=== PATIENT | female | born 1990 | race Caucasian/White ===

== ENCOUNTER 2019-03-30 07:05 | Outpatient (CLI) | payer BC ==
--- NOTE | 2019-03-30 08:55 | MRI ---
MRI OF BRAIN WITH AND WITHOUT CONTRAST: Date: 03/30/19 INDICATION: Chronic nonintractable headache, unspecified. No prior imaging comparison available. FINDINGS: The ventricular system is normal in size. There is no mass effect or midline shift. No acute territor ial infarction or intracranial hemorrhagic susceptibility. There is focal prominence of CSF signal ov erlying the left superior cerebral convexity. The vessels are seen traversing this region, which ther efore favors focal benign enlargement of the subarachnoid space. There is no associated pathologic en hancement. The imaged skull base flow-voids are patent. IMPRESSION: 1. No acute intracranial abnormalities. 2. Focal benign enlargement of CSF space overlying the superior left cerebral convexity. POS: C
--- NOTE | 2019-03-30 08:55 | MRI ---
Noncontrast enhanced [place] [facility]. HISTORY: Chronic intractable headache. Multiplanar multisequence noncontrast enhanced [place] [facility] performed. The ICA vessels are unremarkable. The HIREN, MCA and FEATHER SEPARATOR vessels are patent. Vertebrobasilar arteries a re patent. IMPRESSION: normal [place] [facility].
[2019-03-30] MEDS ORDERED: Gadobenate Dimeglumine 529 MG/1 ML (20ML VIAL) ONE (09:16)
== END 2019-03-30 07:06 | disposition home or self-care (01) ==
LOC: SCSMRI 07:05
PROVIDERS: ATTEND Physician Assistant
DX: R51 Headache (principal); G89.29 Other chronic pain; G93.89 Other specified disorders of brain
CPT/HCPCS: 70544; 70553; A9577

== ENCOUNTER 2019-04-26 10:27 | Outpatient (CLI) | payer BC ==
--- NOTE | 2019-04-26 12:14 | RAD ---
2 VIEW CHEST: Date: 04/26/19 HISTORY: Chest pain. FINDINGS: Lung [place] appear clear. No infiltrate. Heart and mediastinum unremarkable. There is evidence of a pectus excavatum. IMPRESSION: No acute findings. POS: [facility]
== END 2019-04-26 10:28 | disposition home or self-care (01) ==
LOC: BICRAD 10:27
PROVIDERS: ATTEND Internal Medicine
DX: R07.89 Other chest pain (principal)
CPT/HCPCS: 71046; 87480; 87491; 87510; 87591; 87624; 87660; 88142; G0123